=== PATIENT | male | born 1950 | race Hispanic/Latino ===

== ENCOUNTER → 2022-07-21 | Outpatient (CLI) | payer OTHER, MEDICARE ==
[~2022-07-21] MED LIST: ASPI-1005 PO; CIPR-278 PO; LISI5TAB PO; METF500T PO; SULF-168 PO; Simvastatin PO
== END | disposition home or self-care (01) ==
LOC: SHCH 10:19
PROVIDERS: ATTEND Internal Medicine Cardiovascular Disease
DX: I10 Essential (primary) hypertension (principal); R01.1 Cardiac murmur, unspecified; E78.5 Hyperlipidemia, unspecified
CPT/HCPCS: 93306